=== PATIENT | female | born 1985 | race Native Hawaiian/Other Pacific Islander ===

== ENCOUNTER 2018-02-03 01:07 | Inpatient (IN) | payer BC ==
[2018-02-03 01:31] VITALS: BMI 27.4
[2018-02-03] MEDS ORDERED: ceFAZolin 2 GM in Sodium Chloride 0.9% 100 ML IVPB ONE (02:53)
[2018-02-03] MEDS ORDERED: Lactated Ringer's 1,000 ML IV ONE ×2 (02:59→11:09)
[2018-02-03] MEDS ORDERED: Oxytocin 30 UNIT 30 UNITS/500 ML BAG IV ONE (03:00)
[2018-02-03] MEDS ORDERED: OXYTOCIN/0.9 % NS 20 UNIT/1,000 ML BAG IV SCH (03:00)
[2018-02-03] MEDS: Lactated Ringer's 1,000 ML IV ONE ×3 (03:15→06:50)
[2018-02-03 03:30] VITALS: RESP 18; O2SAT 98
[2018-02-03 03:38] LABS: BASO % 0.5 % (0.0-2.0); EOS # 0.1 K/uL (0.0-0.7); EOS % 1.1 % (0.0-4.0); HEMOGLOBIN 12.3 g/dL (12.0-16.0); LYMPH # 1.3 K/uL (1.0-4.3); LYMPH % 20.9 % (20.0-40.0); MEAN CELL VOLUME 86.1 fl (81.0-99.0); MEAN CORPUSCULAR HEMOGLOBIN 27.7 pg (27.0-31.0); MEAN CORPUSCULAR HGB CONC 32.2 g/dL (33.0-37.0); MEAN PLATELET VOLUME 8.7 fl (7.2-11.7); MONO # 0.5 K/uL (0.0-0.8); MONO % 8.5 % (0.0-10.0); NEUT # 4.2 K/uL (1.8-7.0); NRBC % 0.3 % (0.0-0.0); RBC 4.46 Mil/uL (3.80-5.20); RED CELL DISTRIBUTION WIDTH 23.1 % (11.5-14.5); WHITE BLOOD COUNT 6.1 K/uL (4.8-10.8)
--- NOTE | 2018-02-03 05:54 | OBADHP ---
Datetime: 02/03/2018 02:09 Admit Comment, IP Provider: 32 y/o @ 39 wks w/KAILEY 01/30/2018, LMP-05/06/2017, is presenting f or scheduled . Patient has no complaints _ denies vb, ctx, loss of fluid, f/c/n/v/d. PNP-Dr. Tariq OBGYNhx: x 1, 2015, breech presentation, 2 spontaneous abortions PMH: diet controlled GD Allergies: denies Meds: PNV surghx: x 1 Famhx: denies sochx: denies EtOH, Tobacco or elicit drug use ROS: 12 points reviewed _ neg unless otherwise mentioned in HPI VS:stable Cardio: s1s2 Lungs: cta b/l Abd: Gravid, BS+, nontender Ext: nonedematous A/P: 32 y/o @ 39 wks w/KAILEY 01/30/2018 is presenting for scheduled . -Admit to unit with initiation of protocol Case discussed with Dr. Chandni Espinoza, , PGY-1 OB Attending note. Pt seen/examined this morning. Agree with note. 39wIUP/Previous C/S decelined for repeat C/S. Infrmed consent obtained Extremities - PN: Normal Lungs - PN: Normal Heart - PN: Normal General - PN: Normal Presentation-Admit: Vertex Membranes, Provider: Intact Gestation - Est Wks by US: 39.0 Pool Provider: Negative IP Hx Assessment: The History has been Reviewed and is Current Vital Signs Provider: Reviewed IP Chief Complaint: Scheduled Section FHR Category Provider Fetus A: Category I NICHD Decel Fetus A IP Provider: None Dilatation, Provider: 0 IP Adm Impression: Term, intrauterine ; No Active Labor; Intact Membranes IP Admit Plan: Admit to unit; Initiate Section protocol
[2018-02-03] MEDS ORDERED: Morphine 1 mg/ml preservative-free Inj(Duramorph) ONE (05:57)
[2018-02-03] MEDS ORDERED: OXYTOCIN/0.9 % NS 20 UNIT/1,000 ML BAG IV ONE (06:00)
--- NOTE | 2018-02-03 07:21 | OBDS ---
DELIVERY PERSONNEL Delivery Doctor: Arben Tariq DO Scrub Nurse: Alfredo Haynes Society Editor: Wilberto Song RN, Cookie Estrada RN Anesthesiologist: Perri Shearer MATERNAL INFORMATION Delivery Anesthesia: Spinal Medications in Delivery: ancef 2g, pitocin 30units/500ml Estimated Blood Loss (ml): 800 Placenta Cultured: No Maternal Complications: None Provider Comments: Pre Op Dx : IUP at 39w/previous C/S x1 Post Op Dx : same Procedure: Repeat LTCS via previous C/S x 1 Surgeon: Dr Tariq Asst : Dr Odell Prado: Dr Garibay Anesth: spinal Findings: -live infant male delivered from [facility] presentation - 9,9 -clear AF -Placenta delivered intact manually -Ovaries and tubes WNL grossly -All equipment sponges and needles accounted for -she remained stable EBL 800cc LABOR SUMMARY EDC: 02/10/2018 00:00 No. Babies in Womb: 1 Attempted: No Labor Anesthesia: Intrathecal LABOR INFORMATION Reason for Induction: Not Applicable Oxytocin: N/A Group B Beta Strep: Negative Antibiotics # of Doses: 0 Antibiotics Time of Last Dose: n/a Steroids Given: None Reason Steroids Not Administered: Not Applicable MEMBRANES Membranes Rupture Method: Spontaneous Rupture of Membranes: 02/03/2018 06:30 Length of Rupture (hrs): 0.03 Amniotic Fluid Color: Clear Amniotic Fluid Amount: Moderate Amniotic Fluid Odor: None STAGES OF LABOR Stage 3 hrs: 0 Stage 3 min: 1 CSECTION DELIVERY Primary Indication: Repeat Elective Other Primary Indication: declined CSection Urgency: Non Elective CSection Incidence: Repeat Labor: No Labor Elective: Nonelective CSection Incision: Lower Uterine Transverse Uterine Closure: Double-layer closure BABY A INFORMATION Infant Delivery Date/Time: 02/03/2018 06:32 Method of Delivery: Born in Route : No : N/A Forceps: N/A Vacuum Extraction: N/A Shoulder Dystocia : No SHOULDER DYSTOCIA BABY A Delivery Date/Time: 02/03/2018 06:32 PRESENTATION/POSITION BABY A Presentation: Cephalic Cephalic Presentation: Vertex Breech Presentation: N/A PLACENTA INFORMATION BABY A Placenta Delivery Time : 02/03/2018 06:33 Placenta Method of Delivery: Spontaneous Placenta Status: Delivered SCORES BABY A Heart Rate 1 min: >100 bpm Resp Effort 1 min: Good Cry Reflex Irritability 1 min: Cough or Sneeze or Pulls Away Muscle Tone 1 min: Active Motion Color 1 min: Body [employer], Extremities Blue Resuscitation Effort 1 min: N/A SCORE 1 MIN: 9 Heart Rate 5 min: >100 bpm Resp Effort 5 min: Good Cry Reflex Irritability 5 min: Cough or Sneeze or Pulls Away Muscle Tone 5 min: Active Motion Color 5 min: Body [employer], Extremities Blue Resuscitation Effort 5 min: N/A SCORE 5 MIN: 9 INFORMATION BABY A Gestational Age at Delivery: 39.0 Gestational Status: Term Outcome : Liveborn Condition : Stable Infant Sex: Male IDENTIFICATION/MEDS BABY A ID Band Number: [id number] ID Band Location: Left Leg; Left Arm WEIGHT/LENGTH BABY A Birthweight (gms): 4090 Infant Weight (lb): 9 Weight (oz): 0 Length Inches: 20.86 Infant Length cms: 53.0 CORD INFORMATION BABY A No. Cord Vessels: 3 Nuchal Cord : N/A Cord Blood Taken: Yes Suction: Mouth; Nose
[2018-02-03] MEDS ORDERED: Oxycodone/Acetaminophen 5/325 mg Tab PO PRN ×2 (07:25→11:09)
[2018-02-03] MEDS ORDERED: Multivitamin With Minerals Tab PO SCH (09:00)
[2018-02-03] MEDS ORDERED: Simethicone 80 mg Chewtab PO SCH (10:00)
[2018-02-03] MEDS: Simethicone 80 mg Chewtab PO SCH ×2 (16:03→23:01)
[2018-02-04] MEDS: Simethicone 80 mg Chewtab PO SCH ×5 (04:27→22:01)
[2018-02-04 08:23] LABS: HEMOGLOBIN 12.4 g/dL (12.0-16.0); MEAN CELL VOLUME 85.3 fl (81.0-99.0); MEAN CORPUSCULAR HEMOGLOBIN 27.5 pg (27.0-31.0); MEAN CORPUSCULAR HGB CONC 32.2 g/dL (33.0-37.0); RBC 4.53 Mil/uL (3.80-5.20); RED CELL DISTRIBUTION WIDTH 23.5 % (11.5-14.5); WHITE BLOOD COUNT 13.5 K/uL (4.8-10.8)
--- NOTE | 2018-02-04 09:51 | OBPPN ---
Datetime: 02/04/2018 09:47 PP Pain Prov: Within normal limits PP Nausea Prov: Denies PP Flatus Prov: Yes PP Breasts Prov: Not Done PP Heart Prov: Normal PP Lungs Prov: Normal PP Abdomen/Uterus Prov: Normal PP Lochia Prov: Not Done PP Vulva/Perineum Prov: Not Done PP CVA Tenderness Prov: Normal PP Extremities Prov: Normal PP C/S Incision Prov: Normal PP Impression Prov: Normal progression PP Plan Prov: Continue present management PP Progress Note Prov: Patient doing well ambulating tolerating diet and voiding without difficulty Vital signs stable afebrile Uterus firm below the umbilicus Incision clean dry and intact Extremities no Homans Postoperative day #2 Regular diet, ambulate, analgesia as needed, anticipate discharge in a.m. Vital Signs Provider PP: Reviewed
[2018-02-05] MEDS: Multivitamin With Minerals Tab PO SCH (08:30)
[2018-02-05] MEDS: Simethicone 80 mg Chewtab PO SCH ×4 (09:20→21:26)
--- NOTE | 2018-02-05 10:44 | OBPPN ---
Datetime: 02/05/2018 10:40 PP Pain Prov: Within normal limits PP Nausea Prov: Denies PP Flatus Prov: Yes PP Breasts Prov: Normal PP Heart Prov: Normal PP Lungs Prov: Normal PP Abdomen/Uterus Prov: Normal PP Lochia Prov: Normal PP Vulva/Perineum Prov: Normal PP CVA Tenderness Prov: Normal PP Extremities Prov: Normal PP Comments Phys Exam Prov: Fundus under umbilicus incision clean/dry/intact PP Impression Prov: Normal progression PP Plan Prov: Continue present management PP Progress Note Prov: Patient denies CP, no SOB, no N/V, tolerating PO diet, ambulating/voiding wel l, mild lochia, abdominal pain tolerable with meds A/P POD #2 1. continue post op orders 2. Percocet/Motrin prn pain IP PP Procedures: None Vital Signs Provider PP: Reviewed; Within Normal Limits
[2018-02-06] MEDS: Simethicone 80 mg Chewtab PO SCH ×2 (06:13→09:36)
--- NOTE | 2018-02-06 07:15 | OBPPN ---
Datetime: 02/06/2018 07:12 PP Pain Prov: Within normal limits PP Nausea Prov: Denies PP Flatus Prov: Yes PP BM Prov: Yes PP Abdomen/Uterus Prov: Normal PP Lochia Prov: Normal PP Extremities Prov: Normal PP C/S Incision Prov: Normal PP Progress Prov: Normal PP Comments Phys Exam Prov: Incision intact w/ steri strips PP Impression Prov: Normal progression PP Plan Prov: Discharge PP Progress Note Prov: POD 3 s/p repeat c/s, doing well, breast feeding Rx's motrin and percocet given Discharge home today Vital Signs Provider PP: Reviewed
[2018-02-06] MEDS: Multivitamin With Minerals Tab PO SCH (11:33)
[2018-02-07 01:37] VITALS: BP 110/66; PULSE 88; TEMP 98.3
--- NOTE | 2018-02-07 08:30 | OP ---
PROCEDURE DATE: 02/03/2018 PREOPERATIVE DIAGNOSES: Intrauterine at 39 weeks' gestation, previous section x1, declining vaginal after section. POSTOPERATIVE DIAGNOSES: Intrauterine at 39 weeks' gestation, previous section x1, declining vaginal after section. PROCEDURE: Repeat low transverse section via previous surgical scar. SURGEON: Silver Tariq DO CLINICAL FELLOW: Alec Bain MD (Dr. Alec Bain is a board certified OB-AUDIOVISUAL TECH physician who was available to assist on this case. His presence was vital and necessary for the procedure. He was present from the time of incision to the delivery of the , to the closure of the skin). TYPE OF ANESTHESIA: Spinal. ANESTHESIA ADMINISTERED BY: Domo aRyo MD OPERATIVE FINDINGS: Live male infant, delivered from the cephalic presentation, with clear amniotic fluid noted. scores are 9 and 9 given at one and five minutes respectively. Placenta was delivered and intact manually. Ovaries and tubes appeared to be within normal limits grossly. All equipments, sponges, and needles are accounted for. She tolerated the procedure well and remained hemodynamically stable throughout the procedure. ESTIMATED BLOOD LOSS: 800 mL DESCRIPTION OF PROCEDURE: aDrnell was brought to the operating room. She was given spinal anesthesia and placed in the supine position. Compression boots were placed on both lower extremities. A Williamson catheter was placed in the bladder and noted to be draining clear urine. She was then draped and prepped in the usual sterile manner. Once adequate anesthesia was confirmed, incision was made through the previous surgical scar. Previous surgical scar was removed. This was done using a scalpel. Incision was then taken down to the underlying fascia using electrocautery. The fascia was nicked in the midline and extended bilaterally using electrocautery. The inferior aspect of the fascia was grasped using two Lyndsay clamps, tented up, and the rectus muscle was both bluntly and sharply dissected. The same was done with the superior aspect of the fascia. In the midline superiorly, the rectus muscle was grasped using two Allis clamps, tented up. Incision was made in the midline using a scalpel upon entering the peritoneum. This incision was then extended superiorly and inferiorly with direct visualization of the bladder and intestines. A bladder blade was then inserted. Two wet lap pads were placed on the paracolic gutters. Incision was made on the uterus using Metzenbaum scissors and then extending it bilaterally. Bladder blade was then inserted behind the bladder flap. The lower uterine segment was noted to be very thin. We were able to visualize the infant, even prior to hysterotomy. The uterus was carefully scored using a scalpel. Upon entering the uterus, clear amniotic fluid was noted. This incision was then extended bilaterally digitally. The was then delivered as atraumatically as possible. First, the 's head was delivered. It was bulb suctioned nasopharyngeally. The remainder of the infant was then delivered as atraumatically as possible. Cord was clamped and cut, and the infant was handed to the nib assembler in attendance. Cord bloods were obtained. Placenta was delivered intact manually. The uterus was then exteriorized, cleared of debris and clots. Good contracture of the uterus was noted. 0 Vicryl suture was used to close the first layer of the uterus in interlocking fashion. Second layer of the uterus was closed using 0 Vicryl suture imbricating the first layer. Good hemostasis assured. Ovaries and tubes appeared to be within normal limits grossly. Posterior cul-de-sac was noted to be clear of debris and clots. Irrigation was performed. Uterus was then placed back into the peritoneal cavity. Lower uterine segment was noted to have good hemostasis. All equipments were removed and accounted for. 0 Vicryl suture was used to approximate the peritoneum in a running fashion. The rectus muscle was noted to have good hemostasis approximately x3 using 0 Vicryl suture. 0 Vicryl suture was then used to approximate the fascial layer in a running fashion. Irrigation was performed. Hemostasis was assured using electrocautery. A 2-0 plain suture was used to approximate the subcuticular layer x3, 3-0 Vicryl suture was used to approximate the skin in running fashion. Dermabond, Steri-Strips, and pressure bandage were applied. She tolerated the procedure well, was transferred to the recovery room in stable condition. All equipments, sponges, and needles were accounted for. Silver Tariq DO
== END 2018-02-06 16:45 | disposition home or self-care (01) | DRG 788 ==
LOC: H.L&D 01:07 → H.OB/GYN 11:11
PROVIDERS: ADMIT Obstetrics & Gynecology; ATTEND Obstetrics & Gynecology
PROC: 10D00Z1 Extraction of Products of Conception, Low, Open Approach (ICD-10-PCS; principal; 2018-02-03)
DX: O34.211 Maternal care for low transverse scar from previous cesarean delivery (principal); O36.63X0 Maternal care for excessive fetal growth, third trimester, not applicable or unspecified; Z37.0 Single live birth; Z3A.39 39 weeks gestation of pregnancy